=== PATIENT | male | born 1960 | race Caucasian/White ===

== ENCOUNTER 2019-07-30 06:40 | Inpatient (IN) ==
--- NOTE | 2019-07-23 15:00 | EKG Report ---
Test Performed on : 07/23/2019 2:41:14 PM Test Reason : pat Blood Pressure : / mmHG Vent. Rate : 090 BPM Atrial Rate : 090 BPM P-R Int : 156 ms QRS Dur : 144 ms QT Int : 380 ms P-R-T Axes : 055 097 054 degrees QTc Int : 464 ms Normal sinus rhythm. Right bundle branch block Abnormal ECG When compared with ECG of 30-APR-2018 11:11, premature ventricular complexes. are no longer present Questionable change in QRS axis Unconfirmed Result
[2019-07-30] MEDS ORDERED: PEPCID ONE (06:52)
[2019-07-30] MEDS ORDERED: REGLAN ONE (06:52)
[2019-07-30] MEDS ORDERED: KEFZOL 1 GM/D5W 2 GM/100 ML IVPB ONE (06:52)
[2019-07-30] MEDS ORDERED: LR 1,000 ML ONE ×2 (06:52→13:14)
[2019-07-30] MEDS ORDERED: XYLOCAINE-MPF 2% ONE (07:31)
[2019-07-30] MEDS ORDERED: DIPRIVAN 1% ONE (07:31)
[2019-07-30] MEDS ORDERED: ROBINUL ONE ×2 (07:50→11:43)
[2019-07-30] MEDS ORDERED: QUELICIN (DOSE) ONE (07:55)
[2019-07-30] MEDS ORDERED: SODIUM CHLORIDE 0.9% 10 ML ONE (08:02)
[2019-07-30] MEDS ORDERED: EXPAREL 1.3% ONE (08:02)
[2019-07-30] MEDS ORDERED: MARCAINE 0.25% ONE (08:02)
[2019-07-30] MEDS ORDERED: DUONEB (A & A) ONE (08:09)
[2019-07-30] MEDS ORDERED: NORCURON ONE ×2 (08:30→10:01)
[2019-07-30] MEDS ORDERED: FENTANYL ONE (08:34)
[2019-07-30] MEDS ORDERED: DECADRON ONE ×2 (08:52→09:04)
[2019-07-30] MEDS ORDERED: OFIRMEV 1000 MG/ISOTONIC SOLN 1,000 MG/100 ML BOTTLE ONE (08:52)
[2019-07-30] MEDS ORDERED: ZOFRAN ONE (08:52)
[2019-07-30] MEDS ORDERED: KETAMINE ONE (08:53)
[2019-07-30] MEDS ORDERED: TORADOL ONE (08:53)
[2019-07-30] MEDS ORDERED: NEO-SYNEPHRINE ONE (09:05)
[2019-07-30 09:12] LABS: URINE SOURCE CATH
[2019-07-30 09:21] LABS: BILIRUBIN URINE NEGATIVE (NEGATIVE); BLOOD URINE NEGATIVE (NEGATIVE); COLOR YELLOW; GLUCOSE URINE NEGATIVE (NEGATIVE); KETONE URINE NEGATIVE (NEGATIVE); LEUKOCYTES URINE NEGATIVE (NEGATIVE); NITRITE URINE NEGATIVE (NEGATIVE); PROTEIN URINE NEGATIVE (NEGATIVE); TURBIDITY URINE CLEAR (CLEAR); UR EPITHELIAL CELLS <10 /HPF (<10); URINE BACTERIA NEGATIVE /HPF; URINE RBC <10 /HPF (<10); URINE WBC <10 /HPF (<10); UROBILINOGEN URINE NORMAL (NORMAL)
[2019-07-30] MEDS ORDERED: NEOSTIGMINE ONE ×2 (11:43→13:23)
[2019-07-30] MEDS ORDERED: BRIDION ONE (11:59)
[2019-07-30] MEDS: DILAUDID ONE ×2 (12:41→12:44)
[2019-07-30] MEDS ORDERED: VENTOLIN HFA ONE (13:24)
[2019-07-30] MEDS ORDERED: FLU VACCINE IM ONE (13:49)
[2019-07-30] MEDS ORDERED: PNEUMOVAX 23 IM ONE (13:50)
[2019-07-30] MEDS: LR 1,000 ML IV SCH ×3 (13:51→23:33)
[2019-07-30] MEDS: NORCO-7.5 PO PRN ×2 (13:59→18:00)
[2019-07-30 16:15] LABS: URINE SOURCE CLEAN CATCH
[2019-07-30] MEDS ORDERED: DILAUDID IV ONE (16:24)
[2019-07-30 16:28] LABS: BILIRUBIN URINE NEGATIVE (NEGATIVE); BLOOD URINE TRACE (NEGATIVE); COLOR YELLOW; GLUCOSE URINE NEGATIVE (NEGATIVE); KETONE URINE NEGATIVE (NEGATIVE); LEUKOCYTES URINE NEGATIVE (NEGATIVE); NITRITE URINE NEGATIVE (NEGATIVE); PROTEIN URINE 30 mg/dL (NEGATIVE); SP GRAVITY URINE 1.026; TURBIDITY URINE CLEAR (CLEAR); UR EPITHELIAL CELLS <10 /HPF (<10); URINE BACTERIA NEGATIVE /HPF; URINE RBC <10 /HPF (<10); URINE WBC <10 /HPF (<10); UROBILINOGEN URINE NORMAL (NORMAL)
[2019-07-30] MEDS: KEFZOL 2 GM/D5W 2 GM/50 ML IVPB IV SCH (19:08)
[2019-07-30] MEDS ORDERED: NARCAN IV PRN (19:15)
[2019-07-30] MEDS: DILAUDID PCA VIAL IV PRN (19:25)
--- NOTE | 2019-07-30 22:11 | OPERATIVE NOTE ---
PROCEDURE DATE: 07/30/2019 PREOPERATIVE DIAGNOSIS: Incisional hernia with chronic overlying skin wound. POSTOPERATIVE DIAGNOSIS: Incisional hernia x2. PROCEDURE PERFORMED: 1. Incisional hernia repair x2 with underlay mesh. 2. Right external oblique component separation. SALES ADMINISTRATION MANAGER: Dr. Orosco was present for the repair portion of the operation. He facilitated exposure and repair. DRAINS: Roman drain x2 in the subcutaneous space. Mesh was 25 x [address] mesh. ANESTHESIA: General with a TAP block. INDICATION: A 59-year-old gentleman who had an emergent operation for perforated diverticulitis approximately a year ago with chronic drainage from his umbilicus and has developed a larger wound of recent. He is a smoker, and he is obese. He has significantly decreased his smoking down to 1 or 2 cigarettes a day with some outpatient weight loss but remains obese with a BMI of 44. Given the worsening nature of the wound with concerns for exposed bowel, a more urgent repair is indicated. Risks, benefits, and alternatives were discussed with the patient, and he consented to the procedure. He was seen preoperatively. Surgical site was confirmed. DESCRIPTION OF PROCEDURE: He was taken to the operating room and placed in supine position. General anesthesia was induced. Macdonald catheter was placed. Hair was removed with clippers. Preincisional antibiotics were administered, and his abdomen was prepped with Betadine and draped in usual fashion. After a time-out, we planned elliptical incision involving his previous scar as well as a chronic wound adjacent to the lateral aspect of his umbilicus. We carried this down through identifying the hernia sac and widely dissected this out back to healthy fascia. This was quite involved. At this point we entered the hernia sac, protecting the underlying bowel and excised the hernia sac back and debriding the fascia back to healthy fascia. On palpation intra- abdominal, we felt that he had a more epigastrically oriented hernia with a healthy fascial bridge in between the 2. The greatest dimension of the larger lower midline hernia was 15 cm in transverse dimension, and the upper was approximately 8 cm in transverse dimension. The rectus were retracted laterally. We created a subcutaneous flap back to the oblique muscles bilaterally, preserving as many perforating vessels as we could. This allowed for good advancement of the rectus muscle, but we felt with the inferior portion there was some undue tension here. As such, we identified the aponeurosis of the external oblique and incised this lateral to the rectus muscle. This provided good advancement, and we felt a tension-free closure. Given the wide defects and the 2 adjacent defects, and with the chronic wound, we used a bowel absorbable Bard Phasix mesh with ST coating in an underlying fashion. We unfurled the mesh underneath the fascia in all directions providing at least a 5 cm overlap in each direction, and then using circumferential transfascial tacks in horizontal mattress fashion using 0 PDS suture, we circumferentially excised this taking up the extra laxity of the mesh. We tacked it centrally to the fascial bridge as well to provide good opposition. At this point, we reapproximated the fascia in the midline bringing the rectus muscles together using interrupted #1 Prolene suture. We had large undermining soft tissue flaps in each direction. As such through 2 stab incisions in both lower quadrants, we tunneled Roman drains into the space and secured them with a 2 nylon suture. At this point we copiously irrigated. Prior to securing our mesh, we did change our gloves from the dissection as well. We prevented any contact with the skin and the mesh. There was no pus. We did have to lyse some intraabdominal omental adhesions. Both hernia sacs were excised and sent for pathology, and overall the intraabdominal contents seemed healthy. The falciform ligament was also mobilized cephalad to provide good direct opposition of the mesh to the underlying abdominal wall. We felt we had good tension-free closure along the midline. There was no injury to the small bowel whatsoever. The skin was then reapproximated with surgical clips. A tight abdominal binder was applied. He was awakened and transferred to recovery. Please also note that our anesthesiology colleagues did provide a TAP block with Exparel prior to the start of the case. For details, please see their record. cc: Kiko Muro MD
[2019-07-30] MEDS: PERIDEX MT SCH (23:33)
[2019-07-30] MEDS: CYMBALTA PO SCH (23:36)
[2019-07-31] MEDS: ZOFRAN IV PRN ×3 (01:32→18:36)
[2019-07-31] MEDS: KEFZOL 2 GM/D5W 2 GM/50 ML IVPB IV SCH ×3 (02:19→18:39)
[2019-07-31 07:50] LABS: HEMATOCRIT 42.4 % (42.0-52.0); HEMOGLOBIN 13.6 g/dL (14.0-18.0); MCH 34.3 PG (27-31); MCHC 32.1 g/dL (33-37); MCV 106.8 FL (81-99); MPV 9.8 FL (7.4-10.4); RBC 3.97 XMIL (4.7-6.1); RDW 14.7 % (11.5-14.5); WBC 13.46 X1000 (4.8-10.8)
[2019-07-31 08:03] LABS: AGAP 11; BUN 20 mg/dL (8-22); CALCIUM 9.3 mg/dL (8.8-10.2); CHLORIDE 97 mmol/L (98-107); COSMO 275; CREATININE 1.1 mg/dL (0.7-1.2); ESTIMATED GFR > 60; GLUCOSE 114 mg/dL (70-104); POTASSIUM 4.5 mmol/L (3.5-5.1); SODIUM 136 mmol/L (136-145); TCO2 28 mmol/L (25-35)
[2019-07-31] MEDS: PRILOSEC PO SCH (08:47)
[2019-07-31] MEDS: CRESTOR PO SCH (08:47)
[2019-07-31] MEDS: PERIDEX MT SCH ×2 (08:48→20:02)
[2019-07-31] MEDS: CYMBALTA PO SCH ×2 (08:48→20:02)
[2019-07-31] MEDS: DUONEB (A & A) INH PRN ×2 (09:20→15:21)
[2019-07-31] MEDS: LR 1,000 ML IV SCH ×3 (10:33→20:11)
[2019-07-31] MEDS: LOVENOX SUBQ SCH (20:07)
--- NOTE | 2019-08-01 01:19 | GENERAL SURGERY PROGRESS NOTE ---
DATE: 07/31/2019 SUBJECTIVE: He feels okay. He is having some pain, some coughing. I have ordered nebulizer treatments. OBJECTIVE: Vital signs: No fevers. Pulse in the 90s. Blood pressure has been okay, 139/86. O2 saturation 92% on 2 L. General: He is alert. He is on nasal cannula. Abdomen: Soft. DEANDRE drains are serosanguineous. His abdominal binder is in place. LABORATORY DATA: White count 13, hematocrit is 42. ASSESSMENT/PLAN: A 59-year-old gentleman status post repair of complicated ventral incisional hernias, doing okay. Encouraged aggressive pulmonary toileting. Given his limited mobility and obesity, we will keep his Macdonald catheter today. I have reviewed his orders. We will keep him on IV fluids and clear liquids for now. I do have him on Ancef perioperatively for the mesh as well as open wound that he had here. We also will keep him on Dilaudid BOX MAKER. cc: Kiko Muro MD
[2019-08-01] MEDS: KEFZOL 2 GM/D5W 2 GM/50 ML IVPB IV SCH ×3 (02:06→18:16)
[2019-08-01] MEDS: PRILOSEC PO SCH ×2 (04:14→06:27)
[2019-08-01] MEDS: LR 1,000 ML IV SCH ×3 (06:32→21:59)
[2019-08-01] MEDS: PERIDEX MT SCH ×2 (10:07→21:59)
[2019-08-01] MEDS: CRESTOR PO SCH (10:07)
[2019-08-01] MEDS: CYMBALTA PO SCH ×2 (10:07→21:59)
[2019-08-01] MEDS: DUONEB (A & A) INH PRN ×2 (11:12→16:12)
--- NOTE | 2019-08-01 18:40 | GENERAL SURGERY PROGRESS NOTE ---
DATE: 08/01/2019 SUBJECTIVE: Feels much better. Pain is improved. His mobility is improving. He is having a more productive, stronger cough. OBJECTIVE: Vital signs: Pulse in the low 100s. Blood pressure 136/72. Oxygen saturation 94% on 2 L. General: He is alert. Abdomen: Soft. Binder placed. DEANDRE drainage serosanguineous. LABS: I reviewed his labs. Nothing new today. ASSESSMENT AND PLAN: A 59-year-old gentleman status post large ventral hernia repair with mesh and component separation. Work on his mobility today. He has not had return of bowel function. We will keep him on clear liquids for now. He is on prophylactic Lovenox. cc: Kiko Muro MD
[2019-08-01] MEDS: LOVENOX SUBQ SCH (21:59)
[2019-08-02] MEDS: LR 1,000 ML IV SCH ×5 (01:55→22:38)
[2019-08-02] MEDS: KEFZOL 2 GM/D5W 2 GM/50 ML IVPB IV SCH ×3 (01:55→18:01)
[2019-08-02] MEDS: PRILOSEC PO SCH (06:02)
[2019-08-02] MEDS: CRESTOR PO SCH (09:48)
[2019-08-02] MEDS: PERIDEX MT SCH ×2 (09:48→21:15)
[2019-08-02] MEDS: CYMBALTA PO SCH ×2 (09:48→21:15)
[2019-08-02] MEDS: DUONEB (A & A) INH PRN ×2 (11:17→16:07)
[2019-08-02] MEDS: CARAFATE PO SCH ×2 (16:37→17:47)
[2019-08-02] MEDS: ZOFRAN IV PRN (16:37)
[2019-08-02] MEDS: PROTONIX IV SCH (18:02)
[2019-08-02] MEDS: LOVENOX SUBQ SCH (19:15)
--- NOTE | 2019-08-02 21:35 | GENERAL SURGERY PROGRESS NOTE ---
DATE: 08/02/2019 SUBJECTIVE: Doing very well. He is having a more productive cough. He is having some reflux, but he is passing gas. His belly is improving, but still slow. OBJECTIVE: On exam he is afebrile, heart rates in the 90s to low 100s, blood pressure 133/78, oxygen saturation is 94%. General: He is alert. Abdomen is soft. DEANDRE drain is serosanguineous. His incision is intact in the flap with no evidence of necrosis. No new labs this morning. ASSESSMENT AND PLAN: A 59-year-old gentleman, status post complicated repair of abdominal hernia with mesh and component separation. We will keep vein open his fluids. I have ordered b.i.d. proton pump inhibitor and Carafate for his reflux. He is having bowel function. His abdominal exam is appropriate. Keep him on clear liquids and gradually advance his diet. Given his limited mobility, we will keep his Macdonald catheter another day, but tomorrow we will plan to remove it. I do have him on prophylactic Ancef and we will continue his patient-controlled analgesia for pain to facilitate his pulmonary toileting and mobility. He is on appropriate home medication. Dr. Beyer is following the patient over the weekend. cc: Kiko Muro MD
[2019-08-03] MEDS: PROTONIX IV SCH ×2 (02:52→15:47)
[2019-08-03] MEDS: KEFZOL 2 GM/D5W 2 GM/50 ML IVPB IV SCH ×3 (02:52→18:15)
[2019-08-03] MEDS: PRILOSEC PO SCH (06:20)
[2019-08-03] MEDS: DUONEB (A & A) INH PRN ×3 (07:38→22:10)
[2019-08-03] MEDS: CRESTOR PO SCH (09:53)
[2019-08-03] MEDS: CYMBALTA PO SCH ×2 (09:53→21:03)
[2019-08-03] MEDS: PERIDEX MT SCH ×2 (09:54→21:03)
[2019-08-03] MEDS: CARAFATE PO SCH ×3 (09:54→18:15)
--- NOTE | 2019-08-03 10:13 | PROGRESS NOTE ---
DATE: 08/03/2019 Mr. Reed is a patient of Dr. Hill, 59-year-old white male, who is status post large ventral hernia repair using mesh. He has [address] not draining that much. His wound is intact without evidence of recurrent hernia. There is no evidence of infection. He is using abdominal binder, still has a Macdonald catheter tube in place. He is still on a pain pump. He is good about getting up. Overall, I think he is doing well. Will continue current treatment. cc: MD Kiko Wallace MD
[2019-08-03] MEDS: SODIUM CHLORIDE 0.9% INJ SCH (15:47)
[2019-08-03] MEDS: LR 1,000 ML IV SCH ×2 (15:47→23:57)
[2019-08-03] MEDS: LOVENOX SUBQ SCH (18:15)
[2019-08-04] MEDS: LR 1,000 ML IV SCH ×6 (02:31→23:22)
[2019-08-04] MEDS: KEFZOL 2 GM/D5W 2 GM/50 ML IVPB IV SCH ×3 (02:55→18:28)
[2019-08-04] MEDS: PROTONIX IV SCH ×2 (02:55→16:07)
[2019-08-04] MEDS: SODIUM CHLORIDE 0.9% INJ SCH ×2 (02:55→16:07)
[2019-08-04] MEDS: DUONEB (A & A) INH PRN ×3 (04:07→16:14)
[2019-08-04] MEDS: CRESTOR PO SCH (08:58)
[2019-08-04] MEDS: PERIDEX MT SCH ×2 (08:58→23:07)
[2019-08-04] MEDS: CARAFATE PO SCH ×3 (08:59→16:08)
[2019-08-04] MEDS: CYMBALTA PO SCH ×2 (08:59→23:07)
--- NOTE | 2019-08-04 12:02 | PROGRESS NOTE ---
DATE: 08/04/2019 SUBJECTIVE: Mr. Ward Reed is a 59-year-old white male who underwent a complicated ventral hernia repair using mesh per Dr. Muro. He remains hospitalized with [address] He also is using an abdominal binder, and he is on a pain pump. He is tolerating a clear liquid diet. PLAN: We will advance his diet. Will leave his DEANDRE drains in place for now. Will decrease his IV fluids. Continue pain control. I will add Colace to avoid constipation. He is on IV Ancef prophylactically. cc: MD Kiko Wallace MD
[2019-08-04] MEDS: LOVENOX SUBQ SCH (23:08)
[2019-08-05] MEDS: KEFZOL 2 GM/D5W 2 GM/50 ML IVPB IV SCH ×3 (04:50→18:22)
[2019-08-05] MEDS: PROTONIX IV SCH ×2 (04:50→17:17)
[2019-08-05] MEDS: DUONEB (A & A) INH PRN (09:55)
[2019-08-05] MEDS: LR 1,000 ML IV SCH (10:08)
[2019-08-05] MEDS: PERIDEX MT SCH ×2 (10:09→21:59)
[2019-08-05] MEDS: CARAFATE PO SCH ×3 (10:09→17:17)
[2019-08-05] MEDS: CYMBALTA PO SCH ×2 (10:09→21:59)
[2019-08-05] MEDS: CRESTOR PO SCH (10:10)
[2019-08-05] MEDS: DILAUDID PCA VIAL IV PRN (12:14)
[2019-08-05] MEDS: PERCOCET-10 PO PRN ×3 (14:56→22:42)
[2019-08-05] MEDS: SODIUM CHLORIDE 0.9% INJ SCH (17:18)
[2019-08-05] MEDS: LOVENOX SUBQ SCH (18:22)
--- NOTE | 2019-08-05 22:07 | GENERAL SURGERY PROGRESS NOTE ---
DATE: 08/05/2019 SUBJECTIVE: Feels okay. His mobility is improving. OBJECTIVE: His abdomen is soft. DEANDRE drain is serosanguineous. Incision is intact. I do not appreciate any recurrent hernia. No fevers. Pulse in the 90s. Blood pressure 129/75, oxygen saturation 95%. He is on nasal cannula. In general, he is alert. No new labs this morning. ASSESSMENT AND PLAN: This is a 59-year-old gentleman status post abdominal wall reconstruction. We will stop his fluids, stop his CAMPUS EXECUTIVE DIRECTOR, discontinue his Macdonald, start him on Percocet for pain. Plan for possible home in the next 24 to 48 hours. cc: Kiko Muro MD
[2019-08-06] MEDS: KEFZOL 2 GM/D5W 2 GM/50 ML IVPB IV SCH ×2 (02:03→11:26)
[2019-08-06] MEDS: PERCOCET-10 PO PRN ×4 (02:49→15:24)
[2019-08-06] MEDS: SODIUM CHLORIDE 0.9% INJ SCH (02:49)
[2019-08-06] MEDS: PROTONIX IV SCH ×2 (02:49→16:06)
[2019-08-06] MEDS: CARAFATE PO SCH ×2 (09:04→13:45)
[2019-08-06] MEDS: CYMBALTA PO SCH (09:05)
[2019-08-06] MEDS: PERIDEX MT SCH (09:05)
[2019-08-06] MEDS: CRESTOR PO SCH (09:05)
[2019-08-06 15:25] VITALS: BP 117/68
--- NOTE | 2019-08-07 15:00 | DISCHARGE SUMMARY ---
ADMISSION DATE: 07/30/2019 DISCHARGE DATE: 08/06/2019 ADMITTING DIAGNOSIS: Incisional hernia. DISCHARGE DIAGNOSIS: Incisional hernia x2. PROCEDURE PERFORMED: Incisional hernia repair with right-sided component separation using Bard Phasix ST mesh. Date of operation was 07/30/2019. HISTORY OF PRESENT ILLNESS: This is a 59-year-old gentleman who had an emergent operation for perforated diverticulitis back several months ago. He developed an incisional hernia that developed an open wound over top, and urgent repair was indicated. HOSPITAL COURSE: He was seen and cleared by Anesthesia for the above procedure on the day of his admission. Postoperatively, he was admitted to my service. His mobility was somewhat limited by the extensive abdominal wall surgery, as well as his obesity and his chronic lung disease, but overall he did okay. He was continued on perioperative Ancef, given a large piece of mesh in a large potential space that would drain, and this was transitioned to Keflex on the day of discharge. He was ultimately weaned off the SNOW REMOVAL/PLOWING onto oral medications. He was able to void after the Macdonald came out. He was on prophylactic Lovenox that was continued throughout the stay, and he did have return of bowel function on about day 3, and his diet was advanced. His incision remained intact with no evidence of infection. His drain output had decreased to a minimal amount, so we removed the left-sided drain, and we planned in the next couple of days to remove the right-sided drain, and he was felt safe for discharge. FOLLOWUP: Followup appointment is with me later this week for drain removal. DISCHARGE MEDICATIONS: [place] as well as Keflex 500 mg t.i.d. while the drain is in place. DISCHARGE INSTRUCTIONS: Discharge instructions were given in written and verbal format. He must wear his abdominal binder at all times. Limit strenuous activity. He will take MiraLAX as needed for stool softener. DISCHARGE DIET: As tolerated. DISPOSITION: Home to self-care in good condition. cc: Kiko Muro MD
== END 2019-08-06 16:27 | disposition home or self-care (01) | DRG 354 ==
LOC: OR 06:40 → 4N 06:40 → OBSVTOIN 12:13
PROVIDERS: ADMIT Surgery; ATTEND Surgery